=== PATIENT | female | born 1965 | race Caucasian/White ===

== ENCOUNTER 2023-08-04 05:58 | Day surgery (SDC) | payer BC, OTHER ==
[2023-08-04] MEDS ORDERED: Midazolam 1 MG/ML 2 ML SDV IV ONE (05:59)
[2023-08-04] MEDS ORDERED: fentaNYL 100 MCG/2 ML SDV IV ONE (05:59)
[2023-08-04] MEDS ORDERED: Midazolam 1 MG/ML 2 ML SDV ONE (06:15)
[2023-08-04] MEDS ORDERED: fentaNYL 100 MCG/2 ML SDV ONE (06:15)
[2023-08-04] MEDS: Dextrose 5%-0.45% NaCl 1,000 ML IV SCH (06:34)
[2023-08-04] MEDS: fentaNYL 100 MCG/2 ML SDV IV ONE ×2 (07:12→07:13)
[2023-08-04] MEDS: Midazolam 1 MG/ML 2 ML SDV IV ONE ×2 (07:13→07:14)
[2023-08-04 08:35] VITALS: BP 103/47; PULSE 50
== END 2023-08-04 08:57 | disposition home or self-care (01) ==
LOC: DL.ENDO 05:58
PROVIDERS: ATTEND Internal Medicine Gastroenterology
DX: K29.80 Duodenitis without bleeding (principal); Z86.16 Personal history of COVID-19; Z98.890 Other specified postprocedural states; Z90.710 Acquired absence of both cervix and uterus; Z88.5 Allergy status to narcotic agent; Z88.0 Allergy status to penicillin
CPT/HCPCS: 43239; 87077; J2250; J3010; J7042